=== PATIENT | female | born 1960 ===

== ENCOUNTER 2018-11-09 09:01 | Outpatient (CLI) | payer OTHER | END 2018-11-09 09:05 | disposition home or self-care (01) | LOC: SONOGRAMA 09:01 | DX: E04.1 Nontoxic single thyroid nodule (principal) ==

== ENCOUNTER 2020-08-02 10:12 | Outpatient (CLI) | payer OTHER | END 2020-08-02 10:22 | disposition home or self-care (01) | LOC: SONOGRAMA 10:12 | PROVIDERS: ATTEND Pathology Anatomic Pathology & Clinical Pathology | DX: E04.2 Nontoxic multinodular goiter (principal) ==

== ENCOUNTER 2025-07-27 09:11 | Outpatient (CLI) | payer OTHER | END 2025-07-27 09:13 | disposition home or self-care (01) | LOC: SONOGRAMA 09:11 | PROVIDERS: ATTEND Pathology Anatomic Pathology & Clinical Pathology | DX: D34 Benign neoplasm of thyroid gland (principal); E04.1 Nontoxic single thyroid nodule ==